=== PATIENT | female | born 1995 | race Caucasian/White ===

== ENCOUNTER 2025-02-09 08:15 | Outpatient (CLI) | payer MEDICAID, SELFPAY ==
[2025-02-09 12:54] LABS: Bacterial Vaginosis* POSITIVE (Negative); Candida glab/krus NOT DETECTED (No Detected)
[2025-02-09 13:26] LABS: Chlamydia DNA Amplified* NOT DETECTED (No Detected); GC DNA Amplified* NOT DETECTED (No Detected)
== END 2025-02-09 08:16 | disposition home or self-care (01) ==
PROVIDERS: PCP Obstetrics & Gynecology; Visit Provider Registered Nurse
DX: N89.8 Other specified noninflammatory disorders of vagina (principal); R39.9 Unspecified symptoms and signs involving the genitourinary system
CPT/HCPCS: 81513; 86592; 86703; 86803; 87086; 87340; 87481; 87491; 87591; 87661

== ENCOUNTER 2025-03-23 13:11 | Outpatient (CLI) | payer MEDICAID, SELFPAY ==
[2025-03-23 15:56] LABS: Bacterial Vaginosis* Negative (Negative); Candida glab/krus NOT DETECTED (No Detected)
== END 2025-03-23 13:12 | disposition home or self-care (01) ==
PROVIDERS: PCP Obstetrics & Gynecology; Visit Provider Registered Nurse
DX: N89.8 Other specified noninflammatory disorders of vagina (principal); R10.20 Pelvic and perineal pain unspecified side
CPT/HCPCS: 81513; 87086; 87481; 87661